=== PATIENT | female | born 2000 | race African-American/Black ===

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

== ENCOUNTER 2022-02-01 20:14 | Emergency (ER) | payer OTHER ==
[2022-02-01 20:30] VITALS: BP 109/72; PULSE 82; RESP 16; TEMP 98.1
== END 2022-02-01 21:34 | disposition home or self-care (01) ==
LOC: FER 20:14
DX: O26.892 Other specified pregnancy related conditions, second trimester (principal); R51.9 Headache, unspecified; Z3A.17 17 weeks gestation of pregnancy
CPT/HCPCS: 99283-25

== ENCOUNTER 2022-03-02 01:28 | Inpatient (IN) | payer OTHER ==
[2022-03-02] MEDS ORDERED: morphine CARPU-JECT 2 MG/1 ML DISP.SYRIN IVPUSH ONE (01:36)
[2022-03-02] MEDS ORDERED: SODIUM CHLORIDE 1,000 ML IV STA (01:36)
[2022-03-02] MEDS ORDERED: ONDANSETRON 4 MG/2 ML VIAL IVPUSH ONE (01:37)
[2022-03-02 02:37] LABS: BASO % 0.4 % (0-2.0); EOS % 0.3 % (0-4.5); LYMPH % 4.3 % (8-40); MCH 26.6 pg (25.7-33.7); MCHC 34.2 g/dl (32.0-36.0); MEAN CELL VOLUME 77.8 fl (80-96); MEAN PLT VOLUME 8.4 fl (7.5-11.1); MONO % 9.2 % (3.8-10.2); NEUT % 85.8 % (42.8-82.8); PLATELET COUNT 106 10^3/uL (134-434); RBC 2.44 M/mm3 (3.60-5.2); RDW 14.3 % (11.6-15.6); WHITE BLOOD COUNT 14.7 K/mm3 (4.0-10.0)
[2022-03-02 02:40] LABS: HEMOGLOBIN 6.5 GM/dL (10.7-15.3)
[2022-03-02 02:46] LABS: INR 1.31 (0.83-1.09); PROTHROMBIN TIME (PATIENT) 15.1 SEC (9.7-13.0)
[2022-03-02 02:49] LABS: ACTIVATED PTT 29.5 SECONDS (25.2-36.5)
[2022-03-02 05:55] LABS: CALCIUM 8.1 mg/dL (8.5-10.1)
[2022-03-02 05:56] LABS: ALBUMIN 2.3 g/dl (3.4-5.0); BLOOD UREA NITROGEN 7.4 mg/dL (7-18)
[2022-03-02 05:59] LABS: CREATININE 0.6 mg/dL (0.55-1.3)
[2022-03-02 06:00] LABS: BILIRUBIN,TOTAL 0.3 mg/dL (0.2-1)
[2022-03-02 06:01] LABS: TOT PROT 5.4 g/dl (6.4-8.2)
[2022-03-02] MEDS ORDERED: SODIUM CHLORIDE 1,000 ML IV SCH (08:00)
[2022-03-02 14:21] LABS: HEMATOCRIT 24.9 % (32.4-45.2); HEMOGLOBIN 8.6 GM/dL (10.7-15.3); MCH 28.5 pg (25.7-33.7); MCHC 34.5 g/dl (32.0-36.0); MEAN CELL VOLUME 82.6 fl (80-96); MEAN PLT VOLUME 8.5 fl (7.5-11.1); PLATELET COUNT 86 10^3/uL (134-434); RBC 3.01 M/mm3 (3.60-5.2); RDW 15.9 % (11.6-15.6); WHITE BLOOD COUNT 10.2 K/mm3 (4.0-10.0)
[2022-03-02 17:34] VITALS: BMI 19.9
[2022-03-02 17:47] LABS: EPI CELLS >36 /uL (0-25.1); HYALINE CASTS 5 /uL (0-3.1); PH,URINE 6.5 (5.0-8.0); URINE APPEARANCE CLEAR; URINE BACTERIA 11 /uL (0-1359); URINE BILIRUBIN NEGATIVE (NEGATIVE); URINE COLOR YELLOW; URINE GLUCOSE (UA) NEGATIVE (NEGATIVE); URINE KETONE 1+ (NEGATIVE); URINE LEUK ESTERASE TRACE (NEGATIVE); URINE NITRITE NEGATIVE (NEGATIVE); URINE PROTEIN 1+ (NEGATIVE); URINE UROBILINOGEN 0.2 mg/dL (0.2-1.0); URINE WBC 119 /uL (0-25.8)
[2022-03-02 22:06] LABS: BASO % 0.6 % (0-2.0); HEMOGLOBIN 9.4 GM/dL (10.7-15.3); LYMPH % 17.2 % (8-40); MCH 28.5 pg (25.7-33.7); MCHC 34.9 g/dl (32.0-36.0); MEAN CELL VOLUME 81.7 fl (80-96); MEAN PLT VOLUME 8.8 fl (7.5-11.1); MONO % 9.9 % (3.8-10.2); NEUT % 69.3 % (42.8-82.8); PLATELET COUNT 101 10^3/uL (134-434); RDW 15.4 % (11.6-15.6)
[2022-03-02 23:20] LABS: URINE RBC 29556.3 /uL (0-23.9)
[2022-03-02 23:21] LABS: YEAST NONE SEEN (NEGATIVE)
[2022-03-03 08:18] VITALS: BP 105/56; PULSE 72; RESP 17; TEMP 98.3
[2022-03-03 08:46] LABS: BASO % 0.5 % (0-2.0); EOS % 3.4 % (0-4.5); HEMATOCRIT 23.2 % (32.4-45.2); HEMOGLOBIN 8.1 GM/dL (10.7-15.3); LYMPH % 14.2 % (8-40); MCH 28.5 pg (25.7-33.7); MCHC 34.9 g/dl (32.0-36.0); MEAN CELL VOLUME 81.6 fl (80-96); MEAN PLT VOLUME 9.2 fl (7.5-11.1); MONO % 10.9 % (3.8-10.2); PLATELET COUNT 87 10^3/uL (134-434); RBC 2.84 M/mm3 (3.60-5.2); RDW 15.4 % (11.6-15.6); WHITE BLOOD COUNT 8.1 K/mm3 (4.0-10.0)
[2022-03-03 08:52] LABS: INR 1.04 (0.83-1.09)
[2022-03-03 09:18] LABS: CALCIUM 8.2 mg/dL (8.5-10.1)
[2022-03-03 09:19] LABS: ALBUMIN 2.4 g/dl (3.4-5.0); BLOOD UREA NITROGEN 6.9 mg/dL (7-18); MAGNESIUM 1.7 mg/dL (1.8-2.4)
[2022-03-03 09:23] LABS: CREATININE 0.5 mg/dL (0.55-1.3); PHOSPHOROUS 2.8 mg/dL (2.5-4.9)
[2022-03-03 09:24] LABS: BILIRUBIN,TOTAL 0.4 mg/dL (0.2-1); TOT PROT 5.5 g/dl (6.4-8.2)
[2022-03-03 12:17] LABS: BASO % 0.6 % (0-2.0); EOS % 3.7 % (0-4.5); HEMATOCRIT 25.3 % (32.4-45.2); HEMOGLOBIN 8.7 GM/dL (10.7-15.3); LYMPH % 13.4 % (8-40); MCH 28.3 pg (25.7-33.7); MCHC 34.3 g/dl (32.0-36.0); MEAN CELL VOLUME 82.3 fl (80-96); MEAN PLT VOLUME 8.8 fl (7.5-11.1); MONO % 10.5 % (3.8-10.2); NEUT % 71.8 % (42.8-82.8); PLATELET COUNT 93 10^3/uL (134-434); RBC 3.08 M/mm3 (3.60-5.2); RDW 15.6 % (11.6-15.6); WHITE BLOOD COUNT 8.8 K/mm3 (4.0-10.0)
[2022-03-03] MEDS ORDERED: FERROUS SO4 325 MG TABLET (FP) PO SCH (12:30)
== END 2022-03-03 15:00 | disposition home or self-care (01) | DRG 813 ==
LOC: JER 01:28 → JERBED 02:44 → J6S 17:01
PROVIDERS: ADMIT Hospitalist; ATTEND Nurse Practitioner Family
PROC: 30233N1 Transfusion of Nonautologous Red Blood Cells into Peripheral Vein, Percutaneous Approach (ICD-10-PCS; principal; 2022-03-02)
DX: N99.821 Postprocedural hemorrhage of a genitourinary system organ or structure following other procedure (principal); Y83.9 Surgical procedure, unspecified as the cause of abnormal reaction of the patient, or of later complication, without mention of misadventure at the time of the procedure; D69.6 Thrombocytopenia, unspecified; I95.9 Hypotension, unspecified; D72.829 Elevated white blood cell count, unspecified; R00.0 Tachycardia, unspecified; R55 Syncope and collapse; D62 Acute posthemorrhagic anemia
CPT/HCPCS: 36415; 36430; 70450-TC; 72125-TC; 76817-TC; 80053; 81003; 83735; 84100; 84702; 85025; 85027; 85610; 85730; 86850; 86900; 86901; 86922; 87086; 93005; 93010; 99285-25; C9803-CS; P9058; U0003; U0005